=== PATIENT | female | born 1975 | race Caucasian/White ===

== ENCOUNTER 2018-11-12 19:59 | Inpatient (IN) | payer OTHER, SELFPAY ==
[~2018-11-12] VITALS: Ht 170.2 cm; Wt 77.6 kg
[2018-11-12] MEDS ORDERED: SODIUM CHLORIDE 0.9% 1,000 ML IV ONE ×2 (20:27→21:53)
[2018-11-12] MEDS ORDERED: MORPHINE SULFATE 4 MG/ML, 1ML IVPush PRN (20:30)
[2018-11-12] MEDS ORDERED: SODIUM CHLORIDE FLUSH 10ML SYR IVF ONE (20:30)
[2018-11-12] MEDS ORDERED: SODIUM CHLORIDE 0.9% 1,000ML IVBOLUS ONE ×2 (20:30→21:30)
[2018-11-12] MEDS ORDERED: DIPHENHYDRAMINE 50 MG/ML, 1ML IVPush ONE (20:30)
[2018-11-12] MEDS ORDERED: ONDANSETRON 2MG/ML, 2ML IVPush ONE (20:30)
[2018-11-12] MEDS ORDERED: DIPHENHYDRAMINE 50 MG/ML, 1ML ONE (20:34)
[2018-11-12] MEDS ORDERED: MORPHINE SULFATE 4 MG/ML, 1ML ONE (20:34)
[2018-11-12] MEDS ORDERED: ONDANSETRON 2MG/ML, 2ML ONE (20:34)
--- NOTE | 2018-11-12 20:56 | NUR ---
CT PENDING LAB/CREATINE.
[2018-11-12 21:06] LABS: BASOPHILS # (AUTO) 0.03 x10^3/uL (0-0.1); BASOPHILS % (AUTO) 0 % (0-1); EOSINOPHILS # (AUTO) 0.47 x10^3/uL (0-0.4); EOSINOPHILS % (AUTO) 3 % (1-7); LYMPHOCYTES # (AUTO) 2.54 x10^3/uL (1-3.4); LYMPHOCYTES % (AUTO) 15 % (22-44); MD NO; MEAN CORPUSCULAR HEMOGLOBIN 30.6 pg (27.0-34.8); MEAN CORPUSCULAR HGB CONC 33.2 g/dL (32.4-35.8); MEAN CORPUSCULAR VOLUME 92.2 fL (80-100); MEAN PLATELET VOLUME 8.7 fL (7.4-10.4); MONOCYTES # (AUTO) 0.74 x10^3/uL (0.2-0.8); MONOCYTES % (AUTO) 5 % (2-9); NEUTROPHILS # (AUTO) 12.74 x10^3/uL (1.8-6.8); NEUTROPHILS % (AUTO) 77 % (42-75); PLATELET COUNT 260 x10^3/uL (130-400); RED CELL DISTRIBUTION WIDTH 13.6 % (9.6-15.2)
[2018-11-12 21:17] LABS: ALANINE AMINOTRANSFERASE 24 U/L (12-78); ALBUMIN 4.1 g/dL (3.4-5.0); ANION GAP 17 mmol/L (5-15); CALCIUM 9.4 mg/dL (8.5-10.1); CHLORIDE 105 mmol/L (98-107); CREATININE 0.75 mg/dL (0.55-1.02)
[2018-11-12 21:19] LABS: ALKALINE PHOSPHATASE 88 U/L (45-117); BILIRUBIN,TOTAL 0.4 mg/dL (0.2-1.0); TOTAL PROTEIN 7.6 g/dL (6.4-8.2)
--- NOTE | 2018-11-12 21:37 | NUR ---
md at bedside to discuss poc, pt to be admitted
--- NOTE | 2018-11-12 21:52 | NUR ---
PT TO CT
[2018-11-12] MEDS ORDERED: SODIUM CHLORIDE FLUSH 10ML SYR IVF PRN (22:00)
[2018-11-12] MEDS ORDERED: OMNIPAQUE 350 MG/ML, 100ML BOTTLE ONE (22:02)
[2018-11-12] MEDS ORDERED: PARO20TA98 PO (22:15)
--- NOTE | 2018-11-12 22:19 | NUR ---
PT UNABLE TO PROVIDE UA STILL, NOTIFIED. OK TO OBTAIN WHEN PT ABLE
--- NOTE | 2018-11-12 22:20 | NUR ---
REPORT TO ESTEFANIA RN, RN UPDATED ON NEED FOR UA. 2ND LITER NS INFUSING ON TRANSFER TO FLOOR
[2018-11-12] MEDS ORDERED: MONT10TA6 PO (22:22)
--- NOTE | 2018-11-12 22:25 | NUR ---
ADMITTING MD AT BEDSIDE
[2018-11-12] MEDS ORDERED: HYDROmorphone 2 MG/ML, 1ML IVPush PRN (22:30)
[2018-11-12] MEDS ORDERED: ZOLPIDEM 5MG TABLET PO PRN (22:30)
[2018-11-12] MEDS ORDERED: ENALAPRILAT 1.25 MG/ML, 2ML IVPush PRN (22:30)
[2018-11-12] MEDS: ENOXAPARIN 30 MG/0.3 ML SQ SCH (22:30)
[2018-11-12] MEDS ORDERED: ONDANSETRON 2MG/ML, 2ML IVPush PRN (22:30)
[2018-11-12] MEDS ORDERED: METOCLOPRAMIDE 5 MG/ML, 2ML IVPush PRN (22:30)
[2018-11-12 22:56] VITALS: BP 110/61
[2018-11-12] MEDS ORDERED: POTASSIUM CHLORIDE 20 MEQ in SODIUM CHLORIDE 0.9% 250 ML IV ONE (23:30)
[2018-11-12] MEDS: SODIUM CHLORIDE 0.9% 1,000 ML IV SCH (23:35)
[2018-11-13 00:16] LABS: CULTURE INDICATED? NO; MICROSCOPIC AUTO
[2018-11-13] MEDS ORDERED: DIPHENHYDRAMINE 50 MG/ML, 1ML IM PRN (00:30)
[2018-11-13 01:21] VITALS: BP 101/67
[2018-11-13 05:27] LABS: BASOPHILS # (AUTO) 0.04 x10^3/uL (0-0.1); BASOPHILS % (AUTO) 0 % (0-1); EOSINOPHILS # (AUTO) 0.23 x10^3/uL (0-0.4); EOSINOPHILS % (AUTO) 2 % (1-7); LYMPHOCYTES # (AUTO) 1.74 x10^3/uL (1-3.4); LYMPHOCYTES % (AUTO) 17 % (22-44); MD NO; MEAN CORPUSCULAR HEMOGLOBIN 29.8 pg (27.0-34.8); MEAN CORPUSCULAR HGB CONC 32.1 g/dL (32.4-35.8); MEAN PLATELET VOLUME 8.3 fL (7.4-10.4); MONOCYTES # (AUTO) 0.35 x10^3/uL (0.2-0.8); MONOCYTES % (AUTO) 3 % (2-9); NEUTROPHILS # (AUTO) 7.98 x10^3/uL (1.8-6.8); NEUTROPHILS % (AUTO) 77 % (42-75); PLATELET COUNT 196 x10^3/uL (130-400); RED BLOOD COUNT 4.19 x10^6/uL (3.82-5.3); RED CELL DISTRIBUTION WIDTH 13.9 % (9.6-15.2)
[2018-11-13 05:34] LABS: ALANINE AMINOTRANSFERASE 17 U/L (12-78); ALBUMIN 2.9 g/dL (3.4-5.0); ANION GAP 7 mmol/L (5-15); CALCIUM 7.9 mg/dL (8.5-10.1); CHLORIDE 115 mmol/L (98-107)
[2018-11-13 05:37] LABS: ALKALINE PHOSPHATASE 66 U/L (45-117); BILIRUBIN,TOTAL 0.5 mg/dL (0.2-1.0); CHOL/HDL RATIO 3.6; CHOLESTEROL, TOTAL 122 mg/dL (140-239); HDL CHOL % 28 % (28-40); HDL CHOLESTEROL (DIRECT) 34 mg/dL (40-60); LDL CHOLESTEROL,CALCULATED 78 mg/dL (54-169); LDL/HDL RATIO 2.3 (0.5-3.0); TOTAL PROTEIN 5.5 g/dL (6.4-8.2); TRIGLYCERIDES 52 mg/dL (50-200); VLDL CHOLESTEROL 10 mg/dL (0-25)
[2018-11-13] MEDS: SODIUM CHLORIDE 0.9% 1,000 ML IV SCH ×3 (05:38→17:28)
[2018-11-13] MEDS: FAMOTIDINE 20 MG/2 ML IVPush SCH ×2 (09:00→21:00)
[2018-11-13] MEDS: PAROXETINE 20 MG TABLET PO SCH (09:00)
[2018-11-13] MEDS: MONTELUKAST 10 MG TABLET PO SCH (09:00)
[2018-11-13 09:15] VITALS: BP 120/76
[2018-11-13] MEDS: ENOXAPARIN 30 MG/0.3 ML SQ SCH ×2 (10:30→21:38)
[2018-11-13 13:45] VITALS: BP 150/76
[2018-11-13 19:14] VITALS: BP 111/71
[2018-11-14 01:20] VITALS: BP 104/69
[2018-11-14] MEDS: SODIUM CHLORIDE 0.9% 1,000 ML IV SCH ×2 (01:23→10:06)
[2018-11-14 05:29] LABS: BASOPHILS # (AUTO) 0.03 x10^3/uL (0-0.1); BASOPHILS % (AUTO) 0 % (0-1); EOSINOPHILS # (AUTO) 0.89 x10^3/uL (0-0.4); EOSINOPHILS % (AUTO) 12 % (1-7); LYMPHOCYTES # (AUTO) 1.83 x10^3/uL (1-3.4); LYMPHOCYTES % (AUTO) 25 % (22-44); MD NO; MEAN CORPUSCULAR HEMOGLOBIN 30.5 pg (27.0-34.8); MEAN CORPUSCULAR HGB CONC 32.5 g/dL (32.4-35.8); MEAN CORPUSCULAR VOLUME 93.9 fL (80-100); MEAN PLATELET VOLUME 8.5 fL (7.4-10.4); MONOCYTES # (AUTO) 0.33 x10^3/uL (0.2-0.8); MONOCYTES % (AUTO) 5 % (2-9); NEUTROPHILS # (AUTO) 4.22 x10^3/uL (1.8-6.8); NEUTROPHILS % (AUTO) 58 % (42-75); PLATELET COUNT 202 x10^3/uL (130-400); RED BLOOD COUNT 4.39 x10^6/uL (3.82-5.3); RED CELL DISTRIBUTION WIDTH 13.9 % (9.6-15.2)
[2018-11-14 05:30] LABS: ANION GAP 8 mmol/L (5-15); CALCIUM 8.5 mg/dL (8.5-10.1); CHLORIDE 113 mmol/L (98-107); CREATININE 0.58 mg/dL (0.55-1.02)
[2018-11-14 05:33] LABS: ALANINE AMINOTRANSFERASE 20 U/L (12-78); ALKALINE PHOSPHATASE 72 U/L (45-117); BILIRUBIN,TOTAL 0.5 mg/dL (0.2-1.0)
[2018-11-14] MEDS: MONTELUKAST 10 MG TABLET PO SCH (08:57)
[2018-11-14] MEDS: PAROXETINE 20 MG TABLET PO SCH (08:57)
[2018-11-14] MEDS: FAMOTIDINE 20 MG/2 ML IVPush SCH (08:57)
[2018-11-14 09:00] VITALS: BP 122/81
[2018-11-14] MEDS: ENOXAPARIN 30 MG/0.3 ML SQ SCH (10:17)
== END 2018-11-14 17:40 | disposition home or self-care (01) | DRG 439 ==
LOC: ED 21:38 → EDIP 21:53 → 3NE 22:53
PROVIDERS: ADMIT Family Medicine; ATTEND Family Medicine
DX: K85.00 Idiopathic acute pancreatitis without necrosis or infection (principal); N13.2 Hydronephrosis with renal and ureteral calculous obstruction; E87.2 Acidosis; E86.0 Dehydration; E87.6 Hypokalemia; F32.9 Major depressive disorder, single episode, unspecified; J45.909 Unspecified asthma, uncomplicated; L50.9 Urticaria, unspecified; Z79.899 Other long term (current) drug therapy
CPT/HCPCS: 36415; 84145; 96361; 99285; J3490; 74177; 80053; 80061; 81001; 83605; 83690; 83735; 84100; 85025; 87040; 96374; 96375; G0378; J2405; J3480; Q9967; J1200; J2270; J7030; J7050